=== PATIENT | male | born 1985 | race Caucasian/White ===

== ENCOUNTER 2023-05-23 18:19 | Emergency (ER) | payer MEDICAID ==
[~2023-05-23] VITALS: Ht 175.3 cm; Wt 86.2 kg
[2023-05-23 18:20] VITALS: PULSE 92; RESP 19; O2SAT 96
[2023-05-23 18:28] VITALS: BP 103/60; PULSE 78; RESP 21; TEMP 99.1; O2SAT 95
[2023-05-23 18:56] LABS: BASOPHILS % (AUTO) 0.6 % (0.0-2.0); EOSINOPHILS # (AUTO) 0.2 K/uL (0-0.4); EOSINOPHILS % (AUTO) 3.2 % (0.0-4.0); HEMATOCRIT 44.5 % (36-52); HEMOGLOBIN 15.4 g/dL (12.0-18.0); LYMPHOCYTES # (AUTO) 1.8 K/uL (2.0-11.5); LYMPHOCYTES % (AUTO) 26.4 % (20.5-51.1); MEAN CORPUSCULAR HEMOGLOBIN 30 pg (27-31); MEAN CORPUSCULAR HGB CONC 35 g/dL (33-37); MEAN CORPUSCULAR VOLUME 86.6 fL (80-94); MONOCYTES # (AUTO) 0.6 K/uL (0.8-1.0); MONOCYTES % (AUTO) 7.9 % (1.7-9.3); NEUTROPHILS # (AUTO) 4.3 K/uL (1.8-7.7); NEUTROPHILS % (AUTO) 61.9 % (42.2-75.2); PLATELET COUNT (AUTO) 277 K/uL (140-450); RED BLOOD CELL COUNT(AUTO) 5.15 MIL/uL (4.20-6.10); RED CELL DISTRIBUTION WIDTH 12.8 % (11.6-13.7)
[2023-05-23] MEDS: diphenhydrAMINE 50 MG/ML VIAL IVP ONE (19:00)
[2023-05-23] MEDS: DEXAMETHASONE 10 MG/ML VIAL IVP ONE (19:01)
[2023-05-23 19:07] LABS: CALCIUM 8.3 mg/dL (8.5-10.1); CARBON DIOXIDE 27.1 mmol/L (21-32); CREATININE 1.2 mg/dL (0.6-1.3); POTASSIUM 4.1 mmol/L (3.5-5.1)
[2023-05-23] MEDS ORDERED: EPIN1KIT31 IM (20:29)
[2023-05-23] MEDS ORDERED: CLIN150C1 PO (20:30)
[2023-05-23 20:48] VITALS: BP 103/60; PULSE 78; RESP 21; TEMP 99.1; O2SAT 95
== END 2023-05-23 20:48 | disposition home or self-care (01) ==
LOC: MED 18:19
DX: R06.02 Shortness of breath (principal); R06.2 Wheezing; L50.9 Urticaria, unspecified; R11.0 Nausea; K04.7 Periapical abscess without sinus; T36.0X5A Adverse effect of penicillins, initial encounter; T39.315A Adverse effect of propionic acid derivatives, initial encounter; Z79.899 Other long term (current) drug therapy; Y92.89 Other specified places as the place of occurrence of the external cause
CPT/HCPCS: 36415; 80048; 85025; 96374; 96375; 99284; J1100; J1200